=== PATIENT | male | born 1950 | race African-American/Black ===

== ENCOUNTER 2020-02-20 13:29 | Emergency (ER) | payer MEDICARE, OTHER ==
[~2020-02-20] VITALS: Ht 180.3 cm; Wt 72.6 kg
[2020-02-20 13:44] VITALS: BP 157/96
[2020-02-20] MEDS ORDERED: QUET400T PO (13:48)
--- NOTE | 2020-02-20 14:52 | NUR ---
Patient discharged to home in stable condition. Written and verbal after care instructions given. Patient verbalizes understanding of instruction.
--- NOTE | 2020-02-20 15:44 | NUR ---
[employer] Consult: Social consult was request by ER staff for a 69 year old male homeless pt in the waiting room. Pt. came in requesting for place to reside. Pt. appears to be alert and oriented x3 (self, place, situation). Pt. appears to be anxious and in distress state. Pt. has no indications of SI/HI. Pt. stated no depression symptoms. Pt. had proper attire but require cleaning. Pt. also needs grooming (dirty and long nails) and malodorous. Pt. stated no required assistance with medications. Pt. appears to be ambulatory w/out any need of assistance. MARQUIS gave homeless resources which included shelters, showers, food [place], meals, health clinics, mental health clinics, and substance abuse referrals. MARQUIS provided the [id number] [facility] Program list. MARQUIS referred pt [facility] [place] [facility] [address] [place] [address] as nearest location. MARQUIS also provided bus route (orange line w/ the next two available times arriving 400pm and 422pm exit [facility]. Bus stop location at [facility]). Homeless resources also included Mental health and health clinics include [facility] [address] [place] [address] ([phone]). [facility] [address] [place] [address] ([phone]); Medical clinics: [facility] [address] [facility], [facility] ([phone]); [facility] [address], [address], [place]. Pt was provided with a brief substance abuse intervention and referred ([phone]); [facility] [address] [place] [address] ([phone]); [facility] [address] [place] [address] ([phone]); [facility] ([phone]; [facility] ([phone]). MARQUIS had the pt. sign a homeless waiver and a copy also placed in the pt's chart. Plan: Pt was given the proper resources needed to find [place] [facility] placement as well as direction for the public transportation. Pt will be transported by his own means of transport.
== END 2020-02-20 14:51 | disposition home or self-care (01) ==
LOC: ER 13:35
DX: Z76.0 Encounter for issue of repeat prescription (principal); F32.9 Major depressive disorder, single episode, unspecified; Z79.899 Other long term (current) drug therapy